=== PATIENT | female | born 1970 | race African-American/Black ===

== ENCOUNTER 2016-11-16 05:53 | Inpatient (IN) | payer OTHER ==
[~2016-11-16] VITALS: Ht 162.6 cm; Wt 105.4 kg
[~2016-11-16 05:53] MED LIST: ACYCLOVIR400 MG PO; BACTRIM,SEPT1 TABLET PO; CLARITIN,ALAVAR10 MG PO; COLACE100 MG PO; DEXAMETHASONE4 MG PO; FLONASE16 G1 BOTH NARES; LEVAQUIN500 MG PO; LEVAQUIN750 MG PO; MELATONIN3 MG PO; NOHOMEMEDS; TYLENOL EXTRA500 MG PO; VALTREX1000 MG PO; ZOFRAN8 MG PO; ZYRTEC10 M3 PO
[2016-11-16 06:21] LABS: HEMATOCRIT 39.4 % (36.0-46.0); MCH 31.2 PG (29.0-34.0); MCHC 35.5 G/DL (30.0-36.0); MCV 87.8 FL (83-99); MEAN PLAT.VOLUME 9.6 uM^3 (9.5-12.4); PLATELET COUNT 200 K/uL (156-360); RBC DIS.WIDTH-CV 13.2 % (11.8-14.6); RBC DIS.WIDTH-SD 40.6 % (39-53); RED BLOOD COUNT 4.49 M/uL (3.80-5.20); WHITE BLOOD COUNT 5.7 K/uL (4.1-10.2)
[2016-11-16 06:32] LABS: CHLORIDE 105 mEq/L (99-109); SODIUM 138 mEq/L (136-147)
[2016-11-16 06:34] LABS: GLUCOSE 121 mg/dL (70-99)
[2016-11-16 06:36] LABS: ANION GAP 11 MEQ/L (2-14); TOTAL BILIRUBIN 0.8 mg/dL (0.0-1.0)
[2016-11-16 06:38] LABS: ALKALINE PHOSPHATASE 258 IU/L (3-129); GFR ESTIMATE (CALCULATED) > 59 mL/min/
[2016-11-16 06:39] LABS: UREA NITROGEN (BUN) 11 mg/dL (9-23)
[2016-11-16 06:47] LABS: QUANTITATIVE HCG < 4.0 MIU/ML
[2016-11-16 08:01] LABS: TROP-I INTERPRETATION NEGATIVE; TROPONIN-I < 0.01 ng/mL (0.0-0.30)
[2016-11-16 08:06] LABS: ADD MIUA? NO; BILIRUBIN NEGATIVE; BLOOD NEGATIVE; COLOR YELLOW ((YELLOW)); GLUCOSE (STRIP) NEGATIVE; KETONES NEGATIVE; LEUKOCYTES NEGATIVE; NITRITE NEGATIVE; PH, URINE 6.5 (5-8); PROTEIN (STRIP) NEGATIVE; SPECIFIC GRAVITY 1.019 (1.000-1.030); UCUL ADDED? NO; UROBILINOGEN 0.2 MG/DL (0.2-1.0)
[2016-11-16 08:42] LABS: LIPASE > 6000 U/L (1.0-51.0)
[2016-11-16] MEDS ORDERED: PRENATAL VITAM1 EA10 PO (11:00)
[2016-11-16] MEDS ORDERED: VITAMIN D31000 UNI2 PO (11:01)
[2016-11-16] MEDS ORDERED: TYLENOL EXTRA500 MG PO (11:02)
[2016-11-16] MEDS ORDERED: VITAMIN C250 MG PO (11:02)
[2016-11-16 14:10] VITALS: BP 130/80
[2016-11-16 19:37] VITALS: BP 103/59
[2016-11-16 23:49] VITALS: BP 112/56
[2016-11-17 07:14] LABS: ALKALINE PHOSPHATASE 193 IU/L (3-129); ANION GAP 8 MEQ/L (2-14); CHLORIDE 108 MEQ/L (99-109); GFR ESTIMATE (CALCULATED) > 59 mL/min/; GLUCOSE 110 mg/dL (70-99); LIPASE 593 U/L (1.0-51.0); POTASSIUM 3.3 MEQ/L (3.7-5.4); SAMPLE HEMOLYSIS CHECK 0; SAMPLE ICTERIC CHECK 0; SAMPLE LIPEMIA CHECK 0; SODIUM 140 MEQ/L (136-147); TOTAL BILIRUBIN 0.6 MG/DL (0.0-1.0); UREA NITROGEN (BUN) 8 mg/dL (9-23)
[2016-11-17 07:24] LABS: HEMATOCRIT 34.3 % (36.0-46.0); MCH 29.5 PG (29.0-34.0); MCHC 32.9 G/DL (30.0-36.0); MCV 89.6 FL (83-99); MEAN PLAT.VOLUME 10.5 uM^3 (9.5-12.4); PLATELET COUNT 165 K/uL (156-360); RBC DIS.WIDTH-CV 13.7 % (11.8-14.6); RBC DIS.WIDTH-SD 44.5 % (39-53); RED BLOOD COUNT 3.83 M/uL (3.80-5.20); WHITE BLOOD COUNT 4.7 K/uL (4.1-10.2)
[2016-11-17 08:27] VITALS: BP 122/65
[2016-11-17 11:00] VITALS: BP 141/67
[2016-11-17 15:00] VITALS: BP 149/66
[2016-11-17 19:39] VITALS: BP 107/64
[2016-11-18] VITALS: BP 135/70
[2016-11-18 04:00] VITALS: BP 126/62
[2016-11-18 07:23] LABS: INTER. NORMALIZED RATIO 1.1; PROTHROMBIN TIME 11.1 (9.2-11.2)
[2016-11-18 08:01] VITALS: BP 117/66
[2016-11-18 11:28] VITALS: BP 110/67
[2016-11-18 16:01] VITALS: BP 125/65
[2016-11-18 17:27] LABS: ANION GAP 9 MEQ/L (2-14); CHLORIDE 107 MEQ/L (99-109); GFR ESTIMATE (CALCULATED) > 59 mL/min/; GLUCOSE 91 mg/dL (70-99); POTASSIUM 3.7 MEQ/L (3.7-5.4); SAMPLE HEMOLYSIS CHECK 0; SAMPLE ICTERIC CHECK 0; SAMPLE LIPEMIA CHECK 0; SODIUM 141 MEQ/L (136-147); UREA NITROGEN (BUN) 6 mg/dL (9-23)
[2016-11-18 19:37] VITALS: BP 116/82
[2016-11-19] VITALS: BP 111/66
[2016-11-19 04:17] VITALS: BP 113/73
[2016-11-19 07:54] VITALS: BP 117/69
[2016-11-19 08:24] LABS: DIRECT BILIRUBIN 1.2 mg/dL (0.0-0.3)
[2016-11-19 08:50] LABS: ALKALINE PHOSPHATASE 314 IU/L (3-129); TOTAL BILIRUBIN 1.7 MG/DL (0.0-1.0)
[2016-11-19 09:22] LABS: ALKALINE PHOSPHATASE 289 IU/L (3-129); DIRECT BILIRUBIN 0.2 mg/dL (0.0-0.3); LIPASE 47 U/L (1.0-51.0); TOTAL BILIRUBIN 0.5 MG/DL (0.0-1.0)
[2016-11-19] MEDS ORDERED: BENADRYL25 MG PO (10:14)
[2016-11-19 11:46] VITALS: BP 120/62
[2016-11-19 16:01] VITALS: BP 126/72
[2016-11-21] MEDS ORDERED: PROBIOTIC1 EAC1 PO (19:27)
== END 2016-11-19 18:53 | disposition home or self-care (01) | DRG 439 ==
LOC: EME 05:53 → EDOF 11:41 → 5SOUTH 11:41 → EDOF 11:46 → 5SOUTH 13:47
PROVIDERS: Internal Medicine; Surgery
DX: K85.10 Biliary acute pancreatitis without necrosis or infection (principal); K80.31 Calculus of bile duct with cholangitis, unspecified, with obstruction; C85.80 Other specified types of non-Hodgkin lymphoma, unspecified site; D84.9 Immunodeficiency, unspecified; R78.81 Bacteremia; E87.6 Hypokalemia; I10 Essential (primary) hypertension; E66.9 Obesity, unspecified; Z68.39 Body mass index [BMI] 39.0-39.9, adult; Z87.891 Personal history of nicotine dependence; Z88.1 Allergy status to other antibiotic agents; Z80.3 Family history of malignant neoplasm of breast; Z83.3 Family history of diabetes mellitus
CPT/HCPCS: 74177; 74330; 76705; 80048; 80053; 80076; 81003; 83690; 84484; 84702; 85027; 85610; 87040; 87077; 87081; 87186; 87493; 87506; 87801; 93005; 99281; 99285; B4087; C1757; C1769; J0330; J1100; J1170; J1650; J1885; J1956; J2405; J2543; J3010; J7030; J7042; J7050; S0028

== ENCOUNTER 2017-04-03 16:45 | Observation (INO) | payer OTHER ==
[~2017-04-03] VITALS: Ht 162.6 cm; Wt 101.3 kg
[~2017-04-03 16:45] MED LIST changes: +BENADRYL25 MG PO; +PRENATAL VITAM1 EA10 PO; +PROBIOTIC1 EAC1 PO; +VITAMIN C250 MG PO; +VITAMIN D31000 UNI2 PO
[2017-04-03 18:19] LABS: HEMATOCRIT 38.9 % (36.0-46.0); MCHC 33.4 G/DL (30.0-36.0); MCV 89.6 FL (83-99); PLATELET COUNT 208 K/uL (156-360); RBC DIS.WIDTH-CV 13.9 % (11.8-14.6); RED BLOOD COUNT 4.34 M/uL (3.80-5.20); WHITE BLOOD COUNT 9.5 K/uL (4.1-10.2)
[2017-04-03 18:29] LABS: CHLORIDE 102 mEq/L (99-109); POTASSIUM 4.5 mEq/L (3.7-5.4); SODIUM 139 mEq/L (136-147)
[2017-04-03 18:31] LABS: GLUCOSE 73 mg/dL (70-99)
[2017-04-03 18:33] LABS: ANION GAP 14 MEQ/L (2-14); TOTAL BILIRUBIN 2.4 mg/dL (0.0-1.0)
[2017-04-03 18:35] LABS: ALKALINE PHOSPHATASE 311 IU/L (3-129); GFR ESTIMATE (CALCULATED) > 59 mL/min/
[2017-04-03 18:36] LABS: UREA NITROGEN (BUN) 6 mg/dL (9-23)
[2017-04-03 18:38] LABS: LIPASE 11 U/L (1.0-51.0)
[2017-04-03 18:46] LABS: QUANTITATIVE HCG < 4.0 MIU/ML
[2017-04-03] MEDS ORDERED: DIAPLEX PO (21:05)
[2017-04-03] MEDS ORDERED: VITAMIN D35000 UNIT PO (21:05)
[2017-04-03] MEDS ORDERED: MAGNESIUM MALATE PO (21:06)
[2017-04-03] MEDS ORDERED: [UNRECOGNIZED DRUG - OTHER] PO (21:07)
[2017-04-03] MEDS ORDERED: [UNRECOGNIZED DRUG - OTHER] PO (21:09)
[2017-04-03] MEDS ORDERED: CURCUMIN PO (21:09)
[2017-04-03 21:15] LABS: ADD MIUA? YES; BILIRUBIN NEGATIVE; BLOOD NEGATIVE; COLOR AMBER ((YELLOW)); GLUCOSE (STRIP) NEGATIVE; KETONES 80; LEUKOCYTES MODERATE; NITRITE NEGATIVE; PROTEIN (STRIP) 30
[2017-04-03 21:20] LABS: BACTERIA 3+ /HPF; EPITHELIAL CELLS 1+ /HPF; MUCUS TRACE /LPF; RED BLOOD CELLS 0-5 /HPF (0-5); UCUL ADDED? YES
[2017-04-03 23:24] VITALS: BP 115/52
[2017-04-04 03:13] VITALS: BP 102/49
[2017-04-04 10:37] LABS: EOSINOPHIL (%) 2.4 % (0-5); EOSINOPHIL COUNT 0.2 K/uL (0-0.3); HEMATOCRIT 33.3 % (36.0-46.0); IMMATURE GRANULOCYTE (%) 0.6 % (0.0-0.7); INSTRUMENT ABS NEUTROPHIL CT 4.2 K/uL; LYMPHOCYTE COUNT 1.3 K/uL (1.0-2.8); MCHC 33.9 G/DL (30.0-36.0); MCV 91.5 FL (83-99); MEAN PLAT.VOLUME 10.5 uM^3 (9.5-12.4); MONOCYTE (%) 9.2 % (3-12); MONOCYTE COUNT 0.6 K/uL (0-0.8); NEUTROPHIL (%) 67.1 % (45-76); NEUTROPHIL COUNT 4.2 K/uL (1.8-6.4); PLATELET COUNT 196 K/uL (156-360); RBC DIS.WIDTH-CV 14.3 % (11.8-14.6); RBC DIS.WIDTH-SD 47.7 % (39-53); RED BLOOD COUNT 3.64 M/uL (3.80-5.20); WHITE BLOOD COUNT 6.2 K/uL (4.1-10.2)
[2017-04-04 10:54] LABS: ANION GAP 14 MEQ/L (2-14); CHLORIDE 107 MEQ/L (99-109); MAGNESIUM 2.2 mg/dl (1.3-2.7); POTASSIUM 3.9 MEQ/L (3.7-5.4); SAMPLE HEMOLYSIS CHECK 0; SAMPLE ICTERIC CHECK 0; SAMPLE LIPEMIA CHECK 0; SODIUM 142 MEQ/L (136-147); TOTAL BILIRUBIN 0.9 MG/DL (0.0-1.0)
[2017-04-04 11:00] LABS: ALKALINE PHOSPHATASE 280 IU/L (3-129); GFR ESTIMATE (CALCULATED) > 59 mL/min/; GLUCOSE 59 mg/dL (70-99); UREA NITROGEN (BUN) 8 mg/dL (9-23)
[2017-04-04 11:34] VITALS: BP 117/58
[2017-04-04 11:47] LABS: POINT-OF-CARE METER ID UU14162508
[2017-04-04 13:06] LABS: POINT-OF-CARE METER ID UU14162508
[2017-04-04 15:08] LABS: POINT-OF-CARE METER ID UU14162508
[2017-04-04 20:07] VITALS: BP 140/76
[2017-04-04 23:14] VITALS: BP 130/70
[2017-04-05 03:26] VITALS: BP 137/83
[2017-04-05 07:30] VITALS: BP 126/60
[2017-04-05 07:53] LABS: ALKALINE PHOSPHATASE 222 IU/L (3-129); ANION GAP 10 MEQ/L (2-14); CHLORIDE 106 MEQ/L (99-109); GFR ESTIMATE (CALCULATED) > 59 mL/min/; GLUCOSE 164 mg/dL (70-99); MAGNESIUM 1.9 mg/dl (1.3-2.7); POTASSIUM 4.1 MEQ/L (3.7-5.4); SAMPLE HEMOLYSIS CHECK 0; SAMPLE ICTERIC CHECK 0; SAMPLE LIPEMIA CHECK 0; SODIUM 139 MEQ/L (136-147); TOTAL BILIRUBIN 0.4 MG/DL (0.0-1.0); UREA NITROGEN (BUN) 4 mg/dL (9-23)
[2017-04-05 08:00] LABS: EOSINOPHIL (%) 0 % (0-5); HEMATOCRIT 29.7 % (36.0-46.0); IMMATURE GRANULOCYTE (%) 0.6 % (0.0-0.7); IMMATURE GRANULOCYTE COUNT 0.1 K/uL; INSTRUMENT ABS NEUTROPHIL CT 7.3 K/uL; LYMPHOCYTE COUNT 0.8 K/uL (1.0-2.8); MCH 31.1 PG (29.0-34.0); MCV 88.9 FL (83-99); MEAN PLAT.VOLUME 10.3 uM^3 (9.5-12.4); MONOCYTE (%) 4.4 % (3-12); MONOCYTE COUNT 0.4 K/uL (0-0.8); NEUTROPHIL (%) 85.4 % (45-76); NEUTROPHIL COUNT 7.3 K/uL (1.8-6.4); PLATELET COUNT 205 K/uL (156-360); RBC DIS.WIDTH-CV 13.8 % (11.8-14.6); RBC DIS.WIDTH-SD 45.1 % (39-53); RED BLOOD COUNT 3.34 M/uL (3.80-5.20); WHITE BLOOD COUNT 8.6 K/uL (4.1-10.2)
[2017-04-05 16:25] VITALS: BP 109/57
[2017-04-05 17:29] VITALS: BP 125/56
[2017-04-05 18:54] VITALS: BP 131/78
[2017-04-05 23:15] VITALS: BP 115/62
[2017-04-06 03:05] VITALS: BP 112/58
[2017-04-06 07:40] VITALS: BP 110/55
[2017-04-06] MEDS ORDERED: NORCO 5/3251 TABLET PO (09:48)
== END 2017-04-06 13:29 | disposition home or self-care (01) ==
LOC: EME 16:45 → 2EASTP 20:20 → EDOF 20:20 → 2EASTP 23:20
PROVIDERS: Surgery
PROC: 0FT44ZZ Resection of Gallbladder, Percutaneous Endoscopic Approach (ICD-10-PCS; principal; 2017-04-04)
DX: K80.00 Calculus of gallbladder with acute cholecystitis without obstruction (principal); Z87.891 Personal history of nicotine dependence; E66.9 Obesity, unspecified; Z85.72 Personal history of non-Hodgkin lymphomas; K82.8 Other specified diseases of gallbladder; Z68.38 Body mass index [BMI] 38.0-38.9, adult
CPT/HCPCS: 76705; 80053; 81003; 82948; 83690; 83735; 84100; 84702; 85025; 85027; 87070; 87075; 87076; 87086; 87205; 88304; 93005; 99281; 99285; G0378; J0131; J0330; J1100; J1170; J2250; J2270; J2405; J2765; J3010; J7030; J7120